=== PATIENT | male | born 1960 | race Caucasian/White ===

== ENCOUNTER 2017-01-17 10:47 | Emergency (ER) | payer OTHER ==
[2017-01-17 11:24] VITALS: BP 162/102
--- NOTE | 2017-01-17 12:08 | UC ---
Skin Complaint HPI - HPI Summary HPI Summary: Small rash in side thigh on right leg-He believes it made be a tick attachment that was on him for about 1-2 days Unsure when it came off---Wishing one time dose of Doxycycline - History of Current Complaint Chief Complaint: [facility] Time Seen by Provider: 01/17/17 11:58 Stated Complaint: SKIN COMPLAINT TICK Hx Obtained From: Patient Onset/Duration: Sudden Onset, Lasting Days - 3, Resolved Skin Exposure Onset/Duration: Days Ago - 2 days ago Timing: Constant Onset Severity: Mild Current Severity: Mild Pain Intensity: 0 Pain Scale Used: 0-10 Numeric Location: Discrete - inside left thigh Character: Redness Aggravating: Clothing Alleviating: Nothing Associated Signs & Symptoms: Positive: Negative - Allergy/Home Medications Allergies/Adverse Reactions: Allergies Allergy/AdvReac Type Severity Reaction Status Date / Time No Known Allergies Allergy Verified 01/17/17 11:15 Home Medications: Home Medications Atorvastatin* [Lipitor 10 MG*] 10 mg PO QAM 01/17/17 [History Confirmed 01/17/17 ] Lansoprazole CAP (NF) [Prevacid CAP (NF)] 30 mg PO DAILY 01/17/17 [History Confirmed 01/17/17] Review of Systems Constitutional: Negative Skin: Negative, Other - erythema around a bruised area about 3 cm total diameter Eyes: Negative ENT: Negative Respiratory: Negative Cardiovascular: Negative Gastrointestinal: Negative Genitourinary: Negative Motor: Negative Neurovascular: Negative Musculoskeletal: Negative Neurological: Negative Psychological: Negative All Other Systems Reviewed And Are Negative: Yes PMH/Surg Hx/FS Hx/Imm Hx Previously Healthy: Yes - Surgical History Surgical History: Yes Surgery Procedure, Year, and Place: tonsils, umbilical hernia, left ankle ankle with plates and screws in place, kidney tumor - Family History Known Family History: Positive: None Family History: denies cardiovascular issues in family lineage - Social History Occupation: Employed Full-time Lives: With Family Alcohol Use: Daily Alcohol Amount: 3 beers Substance Use Type: None Smoking Status (MU): Heavy Every Day Tobacco Smoker Have You Smoked in the Last Year: Yes Cessation Counseling: Counseled 3+Min - 10 Min Physical Exam Triage Information Reviewed: Yes Appearance: Well-Appearing, No Pain Distress, Well-Nourished Vital Signs: Initial Vital Signs Temp 99.4 F 01/17/17 11:03 Pulse 91 01/17/17 11:03 Resp 14 01/17/17 11:03 BP 162/102 01/17/17 11:03 Vital Signs Reviewed: Yes Eye Exam: Normal Eyes: Positive: Conjunctiva Clear ENT Exam: Normal ENT: Positive: Normal ENT inspection, Hearing grossly normal, Pharynx normal, TMs normal. Negative: Nasal congestion, Nasal drainage, Tonsillar swelling, Tonsillar exudate, Trismus, Muffled/hoarse voice Dental Exam: Normal Neck exam: Normal Neck: Positive: Supple, Nontender, No Lymphadenopathy Respiratory Exam: Normal Respiratory: Positive: Chest non-tender, Lungs clear, Normal breath sounds, No respiratory distress, No accessory muscle use Cardiovascular Exam: Normal Cardiovascular: Positive: RRR, No Murmur, Pulses Normal, Brisk Capillary Refill Musculoskeletal Exam: Normal Musculoskeletal: Positive: Strength Intact, ROM Intact, No Edema Neurological Exam: Normal Neurological: Positive: Alert, Muscle Tone Normal Psychological Exam: Normal Skin Exam: Normal Skin: Positive: rashes - as described on inner right thigh Course/Dx - Course Course Of Treatment: warm compress one time dose of doxycycline, follow with pcp in 1 week for re-check and BP recheck - Differential Diagnoses - Skin Complaint Differential Diagnoses: Cellulitis, Tick Born Illness, Urticaria - Diagnoses Provider Diagnoses: tick exposure, nicotine dependant, high blood pressure no current dx Discharge - Discharge Plan Condition: Stable Disposition: HOME Prescriptions: DOXYcycline CAP(*) [DOXYcycline 100MG CAP(*)] 200 mg PO ONCE #2 cap Patient Education Materials: How to Stop Smoking (ED), Tick Bite (ED), Cigarette Smoking and Your Health (GEN), DASH Eating Plan (ED), Hypertension (ED ) Referrals: Kieran Griffith MD [Primary Care Provider] - 1 Week
== END 2017-01-17 12:18 | disposition home or self-care (01) ==
LOC: UCCORT 10:47
DX: S70.361A Insect bite (nonvenomous), right thigh, initial encounter (principal); W57.XXXA Bitten or stung by nonvenomous insect and other nonvenomous arthropods, initial encounter; Y93.9 Activity, unspecified; Y92.9 Unspecified place or not applicable; R03.0 Elevated blood-pressure reading, without diagnosis of hypertension; F17.210 Nicotine dependence, cigarettes, uncomplicated; Z71.6 Tobacco abuse counseling
CPT/HCPCS: 99202; G0463